=== PATIENT | male | born 1985 | race Caucasian/White ===

== ENCOUNTER 2023-12-26 16:15 | Emergency (ER) | payer OTHER, SELFPAY ==
[2023-12-26 16:17] VITALS: BP 158/100
--- NOTE | 2023-12-26 16:17 | ED.GENMED ---
ED Provider Triage
<Taran Calixto PA-C - Last Filed: 12/26/23 16:22>
-
Patient seen by provider in Triage?: Seen in Triage
Attestation: A medical screening examination has been initiated by a qualified medical provider. Based on the assessment performed at this time, it has been determined that an emergent medical condition may exist and the patient has been informed
that further medical evaluation and possible additional diagnostic testing may be needed.
HPI: 38-year-old male presenting to the emergency department for evaluation after he reports that he feels suicidal. Patient admits to taking approximately 15 tablets of gabapentin but unsure of the dosage. Patient states this either 100 mg
tablets or 300 mg tablets. He took these tablets approximately 30 minutes prior to arrival to the emergency department. Patient states he feels suicidal due to the recent yesterday of his sister. He also notes that he recently relapsed on
crystal meth. History of heroin abuse. States that today's plan was to go by a bunch of fentanyl/heroin and overdose. Patient notes that he did not take anything other than the gabapentin. Patient brought immediately back to the emergency
department and placed on a one-to-one observation.
GENERAL: Alert , in no apparent distress
EYE: No visual abnormalities.
NECK: Trachea midline
ENT: No visible abnormalities.
LUNGS: No acute respiratory distress
NEUROLOGICAL: Alert and oriented
SKIN: Skin intact. No visible changes.
MUSCULOSKELETAL: Moving extremities normally
PSYCH: Normal and appropriate interaction.
This is a medical evaluation conducted in person to initiate diagnostic evaluation and provide initial therapeutics. Please see further documentation by the treating clinician.
History of Present Illness
<Taran Calixto PA-C - Last Filed: 12/26/23 16:22>
General
Chief Complaint: Suicidal Ideation
Time Seen by Provider: 12/26/23 17:20
<Fausto Johansen MD - Last Filed: 12/26/23 19:47>
General
Source: patient
Exam Limitations: none
History of Present Illness
History of Present Illness:
Patient took approximately 10 gabapentin tablets in a suicide attempt. Did not take a full bottle. Only medical complaint is mild lethargy. Took this hours before ER arrival. No other ingestion. Patient wants help for his depression and
suicidal ideation
Past History
<Taran Calixto PA-C - Last Filed: 12/26/23 16:22>
Past History
ED Past Medical History: Psychiatric (a/d, substance abuse) and Other (kidney stones)
ED Past Surgical History: None
PSI?: Yes (pt was inaccurate regarding hx of rx for benzos)
Social History
Tobacco: Smoker
Alcohol: None
Drug: Former user
Personal: Single
Living: other
Employment: Not employed
Family History
Family History: Other (n/c)
Review of Systems
<Fausto Johansen MD - Last Filed: 12/26/23 19:47>
Review of Systems
All Other Systems: Not applicable
EENT: Reports no symptoms
Respiratory: Reports no symptoms
Cardiac: Reports no symptoms
ABD/GI: Reports no symptoms
Phy Exam
<Fausto Johansen MD - Last Filed: 12/26/23 19:47>
Physical Exam
Physical Exam:
GENERAL: Alert and oriented in no apparent distress
EYE: Orbits normal.
NECK: Supple, no significant adenopathy.
ENT: Pharynx without erythema
CARDIAC: Regular rate and rhythm without any obvious murmurs.
LUNGS: Clear breath sounds,normal
ABDOMEN: Soft, without focal tenderness or distention
NEUROLOGICAL: Alert and oriented , grossly non-focal
SKIN: Warm and dry, no rash or lesion, no discoloration, skin intact. Multiple tattoos
MUSCULOSKELETAL: No edema,no deformity.Good color
PSYCH: Normal and appropriate interaction.
Course
<Taran Calixto PA-C - Last Filed: 12/26/23 16:22>
Orders/Labs/Results
Orders:
Orders
12/26/23 16:20
1:1 Observation - Suicide/ Violent Behavior As Directed
12/26/23 16:35
Urine Drug Abuse Screen Urgent
Date Specimen was Collected: 12/26/23
Time Specimen was Collected: 19:13
12/26/23 16:36
Electrocardiogram (*1) Stat
Reason for Study: Other
Other Reason for Exam: overdose
EKG- Treatment ONCE
12/26/23 17:12
Acetaminophen Urgent
Alcohol Urgent
Complete Blood Count/With Diff Urgent
Comprehensive Metabolic Panel Urgent
Salicylate Urgent
12/26/23 17:26
Crisis Consult Urgent
Reason for Consult: depression suicidal ideation
Abnormal Lab Results
12/26/23
17:12
RBC 4.58 L 10^6/uL
(4.70-6.10)
Hgb 12.8 L g/dL
(13.0-18.0)
Hct 36.5 L %
(39.0-52.0)
MCV 79.7 L fL
(80.0-94.0)
RDW 15.0 H %
(11.5-14.5)
Monocytes % 9.9 H %
(1.7-9.3)
Chloride 109 H mmol/L
(98-107)
Carbon Dioxide 16 L mmol/L
(22-30)
Salicylates < 1.0 L mg/dl
(2.0-20.0)
Acetaminophen < 10 L ug/ml
(10-30)
12/26/23 17:12
12/26/23 17:12
Vital Signs
Initial and Last Documented VS:
Initial Vital Signs
Temp Pulse Resp BP Pulse Ox
98.5 F 100 16 158/100 98
12/26/23 16:17 12/26/23 16:17 12/26/23 16:17 12/26/23 16:17 12/26/23 16:17
Last Documented Vital Signs
Temp Pulse Resp BP Pulse Ox
98.5 F 100 16 158/100 98
12/26/23 16:17 12/26/23 16:17 12/26/23 16:17 12/26/23 16:17 12/26/23 16:17
<Fausto Johansen MD - Last Filed: 12/26/23 19:47>
Orders/Labs/Results
Orders:
Orders
12/26/23 16:20
1:1 Observation - Suicide/ Violent Behavior As Directed
12/26/23 16:35
Urine Drug Abuse Screen Urgent
Date Specimen was Collected: 12/26/23
Time Specimen was Collected: 19:13
12/26/23 16:36
Electrocardiogram (*1) Stat
Reason for Study: Other
Other Reason for Exam: overdose
EKG- Treatment ONCE
12/26/23 17:12
Acetaminophen Urgent
Alcohol Urgent
Complete Blood Count/With Diff Urgent
Comprehensive Metabolic Panel Urgent
Salicylate Urgent
12/26/23 17:26
Crisis Consult Urgent
Reason for Consult: depression suicidal ideation
Abnormal Lab Results
12/26/23
17:12
RBC 4.58 L 10^6/uL
(4.70-6.10)
Hgb 12.8 L g/dL
(13.0-18.0)
Hct 36.5 L %
(39.0-52.0)
MCV 79.7 L fL
(80.0-94.0)
RDW 15.0 H %
(11.5-14.5)
Monocytes % 9.9 H %
(1.7-9.3)
Chloride 109 H mmol/L
(98-107)
Carbon Dioxide 16 L mmol/L
(-30)
Salicylates < 1.0 L mg/dl
(2.0-20.0)
Acetaminophen < 10 L ug/ml
(10-30)
12/26/23 17:12
12/26/23 17:12
Vital Signs
Initial and Last Documented VS:
Initial Vital Signs
Temp Pulse Resp BP Pulse Ox
98.5 F 100 16 158/100 98
12/26/23 16:17 12/26/23 16:17 12/26/23 16:17 12/26/23 16:17 12/26/23 16:17
Last Documented Vital Signs
Temp Pulse Resp BP Pulse Ox
98.5 F 100 16 158/100 98
12/26/23 16:17 12/26/23 16:17 12/26/23 16:17 12/26/23 16:17 12/26/23 16:17
<Fausto Johansen MD - Last Filed: 12/26/23 19:47>
MDM/Problems Addressed
Differential Diagnosis Includes:
Patient medically stable. Does not feel prolonged monitoring for the gabapentin ingestion. Nothing to support other ingestion. Patient is currently a 201. Crisis consulted.
<Fausto Johansen MD - Last Filed: 12/26/23 19:47>
*Pulse Oximetry
Patient hypoxic: no
*EKG
Interpreted by ED Provider?: Yes
Interpretation: abnormal
Comparison EKG: changes noted
Heart Rate: 88
Rate: normal
Rhythm: sinus
[place]: normal axis
Interval: normal interval
QRS Pattern: normal QRS
Ischemia: non-specific ST changes
*Critical Care Note
Total Time (30-74mins, 75-104mins- exclusive of procedures): Not Applicable
Data Reviewed
Review of Other/Old Records Reveals: Labs and Records
ED Attending Note
<Taran Calixto PA-C - Last Filed: 12/26/23 16:22>
-
Portions of this chart may have been created with voice recognition software.� Occasional wrong word or��sound alike� substitutions may have occurred due to the inherent limitations of voice recognition software.
Discharge Plan
Departure
Patient Disposition: Psych Facility
Date of Disposition: 12/26/23
Time of Disposition: 19:45
Discharge Problem:
Gabapentin ingestion, Depression/suicidal ideation
Prescriptions:
No Action
dextroamphetamine-amphetamine [Adderall] 30 MG tablet
30 mg PO DAILY
naproxen sodium [Aleve] 220 MG tablet
PO PRN PRN (Reason: pain)
ibuprofen [Advil] 200 MG tablet
600 mg PO PRN PRN (Reason: pain)
clonazepam [Klonopin] 2 MG tablet,disintegrating
2 mg PO TID
Unknown Prescription Med For Migraines
PRN PRN (Reason: migraines)
hydrocodone-acetaminophen [Vicodin] 1 EACH tablet
1 ea PO Q4HPRN PRN (Reason: right flank pain) Qty: 10 0RF
sulfamethoxazole-trimethoprim 1 TABLET tablet
1 tab PO BID Qty: 19 0RF
cephalexin [Keflex] 500 MG capsule
500 mg PO Q6 Qty: 39 0RF
amoxicillin-pot clavulanate 875 MG/125 MG tablet
1 tab PO BID Qty: 20 0RF
clindamycin HCl 300 MG capsule
300 mg PO TID Qty: 30 0RF
mupirocin 1 APPLIC ointment
1 applic topical TID Qty: 1 0RF
gabapentin 600 MG tablet
600 mg PO TID Qty: 90 0RF
fluoxetine [Prozac] 40 MG capsule
40 mg PO DAILY Qty: 30 0RF
Referrals:
NONE,* [Family Provider] -
Interventions
Interventions:
*Risk Screen - Suicide Last Done: 12/26/23 16:17
*General Assessment Last Done: 12/26/23 16:17
*Neglect/Abuse Screening Last Done: 12/26/23 16:17
*ED COVID-19 Vaccine History Last Done: 12/26/23 16:17
ED-Psychological Assessment Last Done: 12/26/23 17:31
Discharge Date and Time
Print Language: IRISH
[2023-12-26 17:33] LABS: % Basophils 0.2 % (0-2); % Eosinophils 1.5 % (0-6); % Immature Granulocytes 0.2 % (0-0.5); % Lymphocytes 29.7 % (20.5-51.1); % Monocytes 9.9 % (1.7-9.3); % Neutrophils 58.5 % (42.2-75.2); Absolute Eosinophils 0.1 10^3/uL (0-0.7); Absolute Lymphocytes 1.8 10^3/uL (1.2-3.4); Absolute Monocytes 0.6 10^3/uL (0.1-0.6); Absolute Neutrophils 3.6 10^3/uL (1.4-6.5); Hematocrit 36.5 % (39.0-52.0); Hemoglobin 12.8 g/dL (13.0-18.0); Mean Corp Hgb Conc. 35.1 g/dL (33.0-37.0); Mean Corpuscular Hgb 27.9 pg (27.0-31.0); Mean Corpuscular Volume 79.7 fL (80.0-94.0); Nucleated Red Blood Cells % 0 % (-); Platelet Count 231 10^3/uL (130-400); Red Blood Cell Count 4.58 10^6/uL (4.70-6.10); White Blood Cell Count 6.1 10^3/uL (4.8-10.8)
[2023-12-26 17:47] LABS: ALT (SGPT) 35 U/L (0-50); AST (SGOT) 33 U/L (17-59); Acetaminophen < 10 ug/ml (10-30); Albumin 4.7 g/dl (3.5-5.0); Alkaline Phosphatase 125 U/L (38-126); Blood Urea Nitrogen 14 mg/dl (9-20); Calcium 9.9 mg/dl (8.4-10.2); Carbon Dioxide 16 mmol/L (22-30); Chloride 109 mmol/L (98-107); Glucose 92 mg/dl (70-99); Potassium 3.9 mmol/L (3.5-5.1); Salicylate < 1.0 mg/dl (2.0-20.0); Sodium 141 mmol/L (135-145); Total Bilirubin 0.6 mg/dl (0.2-1.3); eGFR > 60.00
[2023-12-26 17:52] LABS: Alcohol None Detected
[2023-12-26 22:17] LABS: Amphetamines Positive (Negative); Barbiturates Negative (Negative); Benzodiazepines Negative (Negative); Cocaine Negative (Negative); Marijuana Negative (Negative); Methadone Negative (Negative); Opiates Negative (Negative); Phencyclidine Negative (Negative); Tricyclic Antidepressants Negative (Negative)
[2023-12-26 22:18] LABS: Buprenorphine Positive (Negative); Methamphetamines Positive (Negative)
[2023-12-26 22:31] LABS: Fentanyl, Urine Negative (Negative)
[2023-12-27 01:55] VITALS: BP 115/77; BMI 38.4
[2023-12-27 04:02] VITALS: BP 122/68
== END 2023-12-27 04:10 ==
LOC: EMR 16:15
PROVIDERS: Physician Assistant Medical; EMERGENCY PHYSICIAN Emergency Medicine
DX: T42.6X2A Poisoning by other antiepileptic and sedative-hypnotic drugs, intentional self-harm, initial encounter (principal); F32.A Depression, unspecified; R45.851 Suicidal ideations; Y92.9 Unspecified place or not applicable; F17.200 Nicotine dependence, unspecified, uncomplicated; Z87.442 Personal history of urinary calculi
CPT/HCPCS: 99283; 80053; 80143; 80179; 80306; 80307; 82077; 85025; 93005